=== PATIENT | female | born 1980 | race Caucasian/White ===

== ENCOUNTER 2019-07-01 15:01 | Emergency (ER) | payer MEDICAID ==
[~2019-07-01] VITALS: Ht 162.6 cm; Wt 84.5 kg
[2019-07-01 15:07] VITALS: TEMP 97.9
[2019-07-01] MEDS ORDERED: CLARITIN 1010 MG/TAB PO (15:25)
[2019-07-01] MEDS ORDERED: PROTONIX20 MG PO (15:26)
[2019-07-01] MEDS ORDERED: SINGULAIR 110 MG/TAB PO (15:26)
[2019-07-01] MEDS ORDERED: LIDODERM 5% PATC1 EA TP (16:12)
[2019-07-01 16:21] VITALS: BP 140/91; PULSE 88
== END 2019-07-01 16:22 | disposition home or self-care (01) ==
LOC: COL.ER 15:01
DX: S76.011A Strain of muscle, fascia and tendon of right hip, initial encounter (principal); K21.9 Gastro-esophageal reflux disease without esophagitis; F17.210 Nicotine dependence, cigarettes, uncomplicated; Z90.710 Acquired absence of both cervix and uterus; W19.XXXA Unspecified fall, initial encounter; Y92.89 Other specified places as the place of occurrence of the external cause

== ENCOUNTER 2019-10-05 05:10 | Emergency (ER) | payer MEDICAID ==
[~2019-10-05] VITALS: Ht 152.4 cm; Wt 84.1 kg
[~2019-10-05 05:10] MED LIST: CLARITIN 1010 MG/TAB PO; LIDODERM 5% PATC1 EA TP; PROTONIX20 MG PO; SINGULAIR 110 MG/TAB PO
[2019-10-05] MEDS ORDERED: PAXIL 20MG20 MG PO (05:19)
[2019-10-05] MEDS ORDERED: AMOXICILLIN 8751 TAB PO (05:33)
[2019-10-05] MEDS ORDERED: PERCOCET 325 MG1 TA2 PO (05:33)
[2019-10-05 06:05] VITALS: BP 140/76; PULSE 86; TEMP 98.7
== END 2019-10-05 06:07 | disposition home or self-care (01) ==
LOC: COL.ER 05:10
DX: K02.9 Dental caries, unspecified (principal)
CPT/HCPCS: J1170

== ENCOUNTER 2020-03-22 09:07 | Emergency (ER) | payer MEDICAID ==
[~2020-03-22] VITALS: Ht 152.4 cm; Wt 85.0 kg
[~2020-03-22 09:07] MED LIST changes: +AMOXICILLIN 8751 TAB PO; +PAXIL 20MG20 MG PO; +PERCOCET 325 MG1 TA2 PO
[2020-03-22 09:13] VITALS: TEMP 97.7
[2020-03-22 09:33] LABS: BASO # 0.1 (0.0-0.2); BASO % 0.4 % (0.0-2.0); EOS % 0.3 % (0-4.0); GRAN % 81.5 % (42.2-75.2); HEMATOCRIT 46.7 % (37.0-47.0); LYMPH # 1.9 (1.2-3.4); LYMPH % 14.2 % (20.0-51.0); MEAN CELL VOLUME 93 fl (80.0-100.0); MEAN CORPUSCULAR HEMOGLOBIN 32 pg (27.0-31.0); MEAN CORPUSCULAR HGB CONC 34 g/dl (33.0-37.0); MEAN PLATELET VOLUME 11.4 fl (7.4-10.4); MONO # 0.4 (0.1-0.6); MONO % 3.3 % (1.7-9.3); PLATELET COUNT 290 K/mm3 (130-400); RED BLOOD COUNT 5.02 M/mm3 (4.10-5.30); REDCELL DISTRIBUTION WIDTH-CV 12.3 % (11.5-14.5)
[2020-03-22 09:54] LABS: ALANINE AMINOTRANSFERASE 24 U/L (4-34); ALBUMIN 4.8 gm/dL (3.5-5.0); ALKALINE PHOSPHATASE 68 U/L (50-136); ANION GAP 12 mmol/L (7-16); AST,SGOT 25 U/L (15-37); BILIRUBIN,TOTAL 0.6 mg/dL (0.0-1.0); BLOOD UREA NITROGEN 11 mg/dL (7-17); CALCIUM 10.1 mg/dL (8.4-10.2); CARBON DIOXIDE 22 mmol/L (22-30); CHLORIDE 105 mmol/L (98-107); CREATININE, serum 0.77 (0.52-1.25); GLUCOSE 159 mg/dL (74-106); POTASSIUM 3.8 mmol/L (3.4-5.0); SODIUM 139 mmol/L (137-145); TOTAL PROTEIN 8.9 gm/dL (6.4-8.2)
[2020-03-22 10:02] LABS: C-REACTIVE PROTEIN < 0.5 mg/dL (0.0-0.9)
[2020-03-22] MEDS ORDERED: RT ALBUTER2.5 MG/0.5 IH (11:51)
[2020-03-22] MEDS ORDERED: PHENERGAN 25 TA25 MG PO (11:51)
[2020-03-22] MEDS ORDERED: PROAIR HFA0.09 MG/AC IH (11:51)
[2020-03-22 12:00] VITALS: BP 123/84; PULSE 98
== END 2020-03-22 12:00 | disposition home or self-care (01) ==
LOC: COL.ER 09:07
PROVIDERS: Nurse Practitioner
DX: R10.13 Epigastric pain (principal); K21.9 Gastro-esophageal reflux disease without esophagitis; R11.2 Nausea with vomiting, unspecified; F17.210 Nicotine dependence, cigarettes, uncomplicated; Z90.49 Acquired absence of other specified parts of digestive tract; Z90.710 Acquired absence of both cervix and uterus
CPT/HCPCS: J1170; J2270; J2405; J2550; J7030; Q9967

== ENCOUNTER 2020-06-14 02:28 | Emergency (ER) | payer MEDICAID ==
[~2020-06-14] VITALS: Ht 170.2 cm; Wt 88.6 kg
[~2020-06-14 02:28] MED LIST changes: +PHENERGAN 25 TA25 MG PO; +PROAIR HFA0.09 MG/AC IH; +RT ALBUTER2.5 MG/0.5 IH
[2020-06-14 02:30] VITALS: TEMP 98
[2020-06-14 02:55] LABS: BASO # 0.1 (0.0-0.2); BASO % 0.7 % (0.0-2.0); EOS # 0.4 (0.0-0.7); EOS % 4.4 % (0-4.0); GRAN # 3.9 (1.4-6.5); GRAN % 41.7 % (42.2-75.2); HEMATOCRIT 44.4 % (37.0-47.0); HEMOGLOBIN 15.3 g/dl (12.5-16.0); LYMPH # 4.5 (1.2-3.4); LYMPH % 47.8 % (20.0-51.0); MEAN CELL VOLUME 96 fl (80.0-100.0); MEAN CORPUSCULAR HEMOGLOBIN 33 pg (27.0-31.0); MEAN CORPUSCULAR HGB CONC 35 g/dl (33.0-37.0); MEAN PLATELET VOLUME 11.3 fl (7.4-10.4); MONO # 0.5 (0.1-0.6); MONO % 5.2 % (1.7-9.3); PLATELET COUNT 254 K/mm3 (130-400); RED BLOOD COUNT 4.64 M/mm3 (4.10-5.30); REDCELL DISTRIBUTION WIDTH-CV 12.4 % (11.5-14.5)
[2020-06-14 02:58] LABS: ALANINE AMINOTRANSFERASE 16 U/L (4-34); ALBUMIN 4.5 gm/dL (3.5-5.0); ALKALINE PHOSPHATASE 64 U/L (50-136); ANION GAP 13 mmol/L (7-16); AST,SGOT 20 U/L (15-37); BILIRUBIN,TOTAL 0.3 mg/dL (0.0-1.0); BLOOD UREA NITROGEN 7 mg/dL (7-17); CALCIUM 9.2 mg/dL (8.4-10.2); CARBON DIOXIDE 19 mmol/L (22-30); CHLORIDE 113 mmol/L (98-107); CREATININE, serum 0.68 (0.52-1.25); GLUCOSE 110 mg/dL (74-106); MAGNESIUM 2.2 mg/dL (1.6-2.3); POTASSIUM 3.9 mmol/L (3.4-5.0); SODIUM 145 mmol/L (137-145); TOTAL PROTEIN 7.9 gm/dL (6.4-8.2)
[2020-06-14 03:12] LABS: TROPONIN-I < 0.012 ng/mL (0.000-0.035)
[2020-06-14 03:14] LABS: PROLACTIN 23.8 ng/mL (3.0-18.6)
[2020-06-14 05:50] VITALS: BP 125/90; PULSE 90
== END 2020-06-14 05:50 | disposition home or self-care (01) ==
LOC: COL.ER 02:28
PROVIDERS: Emergency Medicine
DX: R56.9 Unspecified convulsions (principal); R55 Syncope and collapse; R51 Headache; J45.909 Unspecified asthma, uncomplicated; Z88.8 Allergy status to other drugs, medicaments and biological substances
CPT/HCPCS: J1790; J7030; Q9967

== ENCOUNTER 2020-10-31 00:40 | Observation (INO) | payer MEDICAID ==
[2020-10-31] VITALS (8 sets, daily range): BP systolic 110–117; BP diastolic 68–80; PULSE 61–84; TEMP 98.3–98.7
[~2020-10-31] VITALS: Ht 152.4 cm; Wt 75.0 kg
[2020-10-31 02:57] LABS: BASO % 0.3 % (0.0-2.0); EOS # 0.1 (0.0-0.7); EOS % 0.4 % (0-4.0); GRAN # 11.3 (1.4-6.5); GRAN % 87.5 % (42.2-75.2); HEMATOCRIT 41.4 % (37.0-47.0); HEMOGLOBIN 14.3 g/dl (12.5-16.0); LYMPH # 1.2 (1.2-3.4); LYMPH % 9.1 % (20.0-51.0); MEAN CELL VOLUME 97 fl (80.0-100.0); MEAN CORPUSCULAR HEMOGLOBIN 33 pg (27.0-31.0); MEAN CORPUSCULAR HGB CONC 35 g/dl (33.0-37.0); MEAN PLATELET VOLUME 10.8 fl (7.4-10.4); MONO # 0.3 (0.1-0.6); MONO % 2.3 % (1.7-9.3); PLATELET COUNT 241 K/mm3 (130-400); RED BLOOD COUNT 4.29 M/mm3 (4.10-5.30); REDCELL DISTRIBUTION WIDTH-CV 11.4 % (11.5-14.5)
[2020-10-31 03:07] LABS: ALANINE AMINOTRANSFERASE 18 U/L (4-34); ALBUMIN 4.4 gm/dL (3.5-5.0); ALKALINE PHOSPHATASE 56 U/L (50-136); ANION GAP 11 mmol/L (7-16); AST,SGOT 26 U/L (15-37); BILIRUBIN,TOTAL 0.6 mg/dL (0.0-1.0); BLOOD UREA NITROGEN 14 mg/dL (7-17); CALCIUM 9.4 mg/dL (8.4-10.2); CARBON DIOXIDE 21 mmol/L (22-30); CHLORIDE 107 mmol/L (98-107); GLUCOSE 166 mg/dL (74-106); LIPASE 90 U/L (23-300); SODIUM 139 mmol/L (137-145); TOTAL PROTEIN 7.4 gm/dL (6.4-8.2)
[2020-10-31 03:19] LABS: TROPONIN-I < 0.012 ng/mL (0.000-0.035)
--- NOTE | 2020-10-31 09:45 | NUR ---
Admission assessment completed, patient arrived to medical room 353 about this time, she is alert/oriented, vital signs stable, Pain controlled at this time and reprots ER nurge gave Moprhine prior to transfer to Medical floor, she reports pain is LUQ and radiating across abdomen, denies any N/V, abdomen is soft and BS +, heart RRR, distal pulses are palapble, lungs CTA/no reps.difficulty noted, home meds/allergies/pharmacy reviewed and updated in the computer, she is NPO in case of surgery, denies other needs at this time, will continue to monitor
--- NOTE | 2020-10-31 10:32 | NUR ---
Patient is going down to OR for Lap.Appendectomy at this time, consent signed, IVF on gravity tubing, ankurance present at this time as well
[2020-10-31] MEDS ORDERED: NORCO 325 MG-51 TAB PO (11:35)
--- NOTE | 2020-10-31 12:15 | NUR ---
Patient arrived back from PACU at this time, alert/oriented, in moderate discomfort, will give Morphine 2mg IV, vital ssigns buzz koch at bedside
--- NOTE | 2020-10-31 14:55 | NUR ---
patient continues to do well post-op, vital signs stable, pain controlled, tolerting PO intake, she has been up and voided urine, plans for discharge home if she continues to do well
--- NOTE | 2020-10-31 16:03 | NUR ---
Discharge ordes/instructions reviewed, instructed patient to follow up with in 1 week as scheduled, discussed activity and bathing restrictions, monitor incision sites for infection, no lifting >10 lbs for 72hrs, may shower but not baths or hot tubs, script given for [place] and instructed to use accordingly, IV removed, patient leaving with mikaela, she is ambulatory and I escorted her out the door
== END 2020-10-31 16:04 | disposition home or self-care (01) ==
LOC: COL.ER 00:40 → MEDICAL 05:37
PROVIDERS: Emergency Medicine; ADMIT Surgery
DX: K35.80 Unspecified acute appendicitis (principal); J45.909 Unspecified asthma, uncomplicated; F17.210 Nicotine dependence, cigarettes, uncomplicated; Z88.8 Allergy status to other drugs, medicaments and biological substances; Z79.899 Other long term (current) drug therapy
CPT/HCPCS: G0378; J0690; J1100; J1885; J2270; J2405; J2543; J2704; Q9967

== ENCOUNTER 2020-11-28 17:37 | Emergency (ER) | payer MEDICAID ==
[~2020-11-28] VITALS: Ht 152.4 cm; Wt 74.1 kg
[~2020-11-28 17:37] MED LIST changes: +NORCO 325 MG-51 TAB PO
[2020-11-28 17:57] VITALS: TEMP 97.2
[2020-11-28 18:47] LABS: BASO % 0.5 % (0.0-2.0); EOS % 0.7 % (0-4.0); GRAN # 3.7 (1.4-6.5); GRAN % 60.6 % (42.2-75.2); HEMATOCRIT 42.8 % (37.0-47.0); HEMOGLOBIN 14.2 g/dl (12.5-16.0); LYMPH # 1.9 (1.2-3.4); LYMPH % 30.6 % (20.0-51.0); MEAN CELL VOLUME 98 fl (80.0-100.0); MEAN CORPUSCULAR HEMOGLOBIN 32 pg (27.0-31.0); MEAN CORPUSCULAR HGB CONC 33 g/dl (33.0-37.0); MEAN PLATELET VOLUME 10.5 fl (7.4-10.4); MONO # 0.4 (0.1-0.6); MONO % 7.3 % (1.7-9.3); PLATELET COUNT 201 K/mm3 (130-400); RED BLOOD COUNT 4.38 M/mm3 (4.10-5.30); REDCELL DISTRIBUTION WIDTH-CV 12.6 % (11.5-14.5)
[2020-11-28 18:55] LABS: ALBUMIN 4.1 gm/dL (3.5-5.0); BILIRUBIN,TOTAL 0.6 mg/dL (0.0-1.0); CALCIUM 9.4 mg/dL (8.4-10.2); CREATININE, serum 0.66 (0.52-1.25); POTASSIUM 3.6 mmol/L (3.4-5.0); TOTAL PROTEIN 7.2 gm/dL (6.4-8.2)
[2020-11-28] MEDS ORDERED: NORCO 325 MG-51 TAB PO (19:42)
[2020-11-28] MEDS ORDERED: ZOFRAN ODT4 MG PO (19:47)
[2020-11-28 20:10] VITALS: BP 136/84; PULSE 82
== END 2020-11-28 20:10 | disposition home or self-care (01) ==
LOC: COL.ER 17:37
PROVIDERS: Physician Assistant
DX: S30.0XXA Contusion of lower back and pelvis, initial encounter (principal); F17.210 Nicotine dependence, cigarettes, uncomplicated; Z88.8 Allergy status to other drugs, medicaments and biological substances; V29.9XXA Motorcycle rider (driver) (passenger) injured in unspecified traffic accident, initial encounter
CPT/HCPCS: J1170; J2405; J3010; J7030

== ENCOUNTER 2021-01-15 03:08 | Emergency (ER) | payer MEDICAID ==
[~2021-01-15] VITALS: Ht 152.4 cm; Wt 75.0 kg
[~2021-01-15 03:08] MED LIST changes: +ZOFRAN ODT4 MG PO
[2021-01-15 03:10] VITALS: TEMP 97.6
[2021-01-15 03:32] LABS: BASO % 0.5 % (0.0-2.0); EOS # 0.3 (0.0-0.7); EOS % 3.4 % (0-4.0); GRAN # 3.2 (1.4-6.5); GRAN % 43.3 % (42.2-75.2); HEMATOCRIT 42.4 % (37.0-47.0); HEMOGLOBIN 14.2 g/dl (12.5-16.0); LYMPH # 3.5 (1.2-3.4); LYMPH % 47.2 % (20.0-51.0); MEAN CELL VOLUME 99 fl (80.0-100.0); MEAN CORPUSCULAR HEMOGLOBIN 33 pg (27.0-31.0); MEAN CORPUSCULAR HGB CONC 34 g/dl (33.0-37.0); MEAN PLATELET VOLUME 10.3 fl (7.4-10.4); MONO # 0.4 (0.1-0.6); MONO % 5.3 % (1.7-9.3); PLATELET COUNT 249 K/mm3 (130-400); REDCELL DISTRIBUTION WIDTH-CV 12.6 % (11.5-14.5)
[2021-01-15 03:42] LABS: ALANINE AMINOTRANSFERASE 19 U/L (4-34); ALKALINE PHOSPHATASE 61 U/L (50-136); ANION GAP 11 mmol/L (7-16); AST,SGOT 23 U/L (15-37); BILIRUBIN,TOTAL < 0.1 mg/dL (0.0-1.0); BLOOD UREA NITROGEN 11 mg/dL (7-17); CALCIUM 8.9 mg/dL (8.4-10.2); CARBON DIOXIDE 19 mmol/L (22-30); CHLORIDE 113 mmol/L (98-107); CREATININE, serum 0.69 (0.52-1.25); GLUCOSE 106 mg/dL (74-106); LIPASE 383 U/L (23-300); SODIUM 144 mmol/L (137-145); TOTAL PROTEIN 7.3 gm/dL (6.4-8.2)
[2021-01-15 03:55] LABS: TROPONIN-I < 0.012 ng/mL (0.000-0.035)
[2021-01-15] MEDS ORDERED: MAALOX ADVANCE148 ML PO (05:26)
[2021-01-15] MEDS ORDERED: PREDNISONE50 MG PO (05:27)
[2021-01-15 06:45] VITALS: BP 129/88; PULSE 103
== END 2021-01-15 06:45 | disposition home or self-care (01) ==
LOC: COL.ER 03:08
PROVIDERS: Emergency Medicine
DX: J45.901 Unspecified asthma with (acute) exacerbation (principal); F17.210 Nicotine dependence, cigarettes, uncomplicated; Z20.822 Contact with and (suspected) exposure to COVID-19; Z90.49 Acquired absence of other specified parts of digestive tract; Z90.89 Acquired absence of other organs; Z90.710 Acquired absence of both cervix and uterus; Z32.02 Encounter for pregnancy test, result negative; Z88.8 Allergy status to other drugs, medicaments and biological substances
CPT/HCPCS: J2060; J7030; J7512

== ENCOUNTER 2021-01-17 12:20 | Emergency (ER) | payer MEDICAID ==
[~2021-01-17] VITALS: Ht 152.4 cm; Wt 72.3 kg
[~2021-01-17 12:20] MED LIST changes: +MAALOX ADVANCE148 ML PO; +PREDNISONE50 MG PO
[2021-01-17 12:30] VITALS: TEMP 97.3
[2021-01-17 12:58] LABS: BASO # 0.1 (0.0-0.2); BASO % 0.5 % (0.0-2.0); EOS # 0.1 (0.0-0.7); EOS % 0.5 % (0-4.0); GRAN # 6.5 (1.4-6.5); GRAN % 54.7 % (42.2-75.2); HEMATOCRIT 46.1 % (37.0-47.0); HEMOGLOBIN 14.8 g/dl (12.5-16.0); LYMPH # 4.6 (1.2-3.4); LYMPH % 38.7 % (20.0-51.0); MEAN CELL VOLUME 100 fl (80.0-100.0); MEAN CORPUSCULAR HEMOGLOBIN 32 pg (27.0-31.0); MEAN CORPUSCULAR HGB CONC 32 g/dl (33.0-37.0); MEAN PLATELET VOLUME 10.6 fl (7.4-10.4); MONO # 0.6 (0.1-0.6); MONO % 5.3 % (1.7-9.3); PLATELET COUNT 245 K/mm3 (130-400); RED BLOOD COUNT 4.62 M/mm3 (4.10-5.30); REDCELL DISTRIBUTION WIDTH-CV 12.5 % (11.5-14.5)
[2021-01-17 12:58] LABS: COLLECTION METHOD CLEAN CATCH
[2021-01-17 13:13] LABS: MUCOUS Present /lpf; PH 5 (5-8); SQUAMOUS EPITHELIAL 0-2 /hpf; URINE APPEARANCE Hazy; URINE BACTERIA None Seen /hpf; URINE BILIRUBIN Negative (NEGATIVE); URINE BLOOD Negative (NEGATIVE); URINE COLOR Yellow; URINE GLUCOSE Negative (NEGATIVE); URINE KETONE Negative (NEGATIVE); URINE LEUKOCYTE ESTERASE Negative (NEGATIVE); URINE NITRATE Negative (NEGATIVE); URINE PROTEIN(semi-quant) Negative (NEGATIVE); URINE RBC 0-2 /hpf; URINE UROBILINOGEN Negative (NEGATIVE)
[2021-01-17 13:34] LABS: ALANINE AMINOTRANSFERASE 21 U/L (4-34); ALBUMIN 4.3 gm/dL (3.5-5.0); ALKALINE PHOSPHATASE 45 U/L (50-136); ANION GAP 8 mmol/L (7-16); AST,SGOT 25 U/L (15-37); BILIRUBIN,TOTAL 0.4 mg/dL (0.0-1.0); BLOOD UREA NITROGEN 21 mg/dL (7-17); CALCIUM 9.3 mg/dL (8.4-10.2); CARBON DIOXIDE 23 mmol/L (22-30); CHLORIDE 109 mmol/L (98-107); CREATININE, serum 0.66 (0.52-1.25); GLUCOSE 88 mg/dL (74-106); LIPASE 58 U/L (23-300); POTASSIUM 4.2 mmol/L (3.4-5.0); SODIUM 140 mmol/L (137-145); TOTAL PROTEIN 8.1 gm/dL (6.4-8.2)
[2021-01-17 13:36] LABS: C-REACTIVE PROTEIN < 0.5 mg/dL (0.0-0.9)
[2021-01-17] MEDS ORDERED: ALBUTEROL SULFAT3 M3 IH (14:32)
[2021-01-17 15:02] VITALS: BP 142/97; PULSE 65
== END 2021-01-17 15:02 | disposition home or self-care (01) ==
LOC: COL.ER 12:20
PROVIDERS: Family Medicine
DX: R10.12 Left upper quadrant pain (principal); J45.901 Unspecified asthma with (acute) exacerbation; F17.210 Nicotine dependence, cigarettes, uncomplicated; Z90.49 Acquired absence of other specified parts of digestive tract; Z90.710 Acquired absence of both cervix and uterus; Z88.8 Allergy status to other drugs, medicaments and biological substances
CPT/HCPCS: J2405; J3010; J7120; Q9967

== ENCOUNTER 2021-02-22 00:50 | Emergency (ER) | payer MEDICAID ==
[~2021-02-22] VITALS: Ht 152.4 cm; Wt 79.5 kg
[~2021-02-22 00:50] MED LIST changes: +ALBUTEROL SULFAT3 M3 IH
[2021-02-22 00:52] VITALS: TEMP 97.9
[2021-02-22 01:13] LABS: BASO % 0.4 % (0.0-2.0); EOS # 0.2 (0.0-0.7); EOS % 2.7 % (0-4.0); GRAN % 41.7 % (42.2-75.2); HEMATOCRIT 40.7 % (37.0-47.0); LYMPH # 3.5 (1.2-3.4); MEAN CELL VOLUME 94 fl (80.0-100.0); MEAN CORPUSCULAR HEMOGLOBIN 32 pg (27.0-31.0); MEAN CORPUSCULAR HGB CONC 34 g/dl (33.0-37.0); MEAN PLATELET VOLUME 10.7 fl (7.4-10.4); MONO # 0.4 (0.1-0.6); MONO % 5.9 % (1.7-9.3); PLATELET COUNT 208 K/mm3 (130-400); RED BLOOD COUNT 4.33 M/mm3 (4.10-5.30); REDCELL DISTRIBUTION WIDTH-CV 12.1 % (11.5-14.5)
[2021-02-22 01:26] LABS: ALBUMIN 4.1 gm/dL (3.5-5.0); BILIRUBIN,TOTAL 0.2 mg/dL (0.0-1.0); CALCIUM 8.7 mg/dL (8.4-10.2); CREATININE, serum 0.66 (0.52-1.25); POTASSIUM 3.7 mmol/L (3.4-5.0); TOTAL PROTEIN 7.4 gm/dL (6.4-8.2)
[2021-02-22 01:30] LABS: COLLECTION METHOD CLEAN CATCH
[2021-02-22 01:38] LABS: PH 6 (5-8); SQUAMOUS EPITHELIAL None Seen /hpf; URINE APPEARANCE Clear; URINE BACTERIA None Seen /hpf; URINE BILIRUBIN Negative (NEGATIVE); URINE BLOOD Negative (NEGATIVE); URINE COLOR Colorless; URINE GLUCOSE Negative (NEGATIVE); URINE KETONE Negative (NEGATIVE); URINE LEUKOCYTE ESTERASE Negative (NEGATIVE); URINE NITRATE Negative (NEGATIVE); URINE PROTEIN(semi-quant) Negative (NEGATIVE); URINE RBC 0-2 /hpf; URINE UROBILINOGEN Negative (NEGATIVE)
[2021-02-22] MEDS ORDERED: ZYRTEC 10MG10 MG PO (01:39)
[2021-02-22] MEDS ORDERED: PROTONIX 40MG T40 MG PO (01:39)
[2021-02-22] MEDS ORDERED: SINGULAIR 110 MG/TAB PO (01:40)
[2021-02-22 01:51] LABS: TRICYCLIC ANTIDEPRESS URINE NEGATIVE
[2021-02-22 01:54] LABS: PROLACTIN 22.8 ng/mL (3.0-18.6)
[2021-02-22 02:00] VITALS: BP 112/98; PULSE 99
== END 2021-02-22 02:25 | disposition home or self-care (01) ==
LOC: COL.ER 00:50
PROVIDERS: Emergency Medicine
DX: R25.1 Tremor, unspecified (principal); K21.9 Gastro-esophageal reflux disease without esophagitis; J45.909 Unspecified asthma, uncomplicated; F17.210 Nicotine dependence, cigarettes, uncomplicated
CPT/HCPCS: J2060; J7030